=== PATIENT | female | born 1965 | race Caucasian/White ===

== ENCOUNTER 2025-04-02 20:05 | Emergency (ER) | payer OTHER, SELFPAY ==
--- OUTSIDE RECORDS SUMMARY | 2025-04-02 20:08 | XMS_ITS | Clinical Summary ---
Author Organization [facility] [facility] Address [address] [place] [id number] Care Team Providers Care Car Hiker Name Role Phone Alicja Alves Primary Care Provider Allergies Active Allergy Reactions Criticality Noted Date Comments Azithromycin Other - Describe In Comment Field 01/09/2011 Lower GI bleeding Medications No known medications Active Problems Problem Noted Date Diagnosed Date Colon polyp 02/01/2017 Overview (03/31/2022): Colonoscopy 01/2017 polyp repeat in 5 years Colonoscopy 03/2022 diverticuli, repeat in 7 years, propofol Elevated glucose 03/08/2013 Vitamin D deficiency 02/23/2012 Fracture of sacrum at S3 06/08/2011 Resolved Problems Problem Noted Date Diagnosed Date Resolved Date Unspecified hemorrhoids with out mention of complication 05/27/2011 Intestinal infection due to Clostridium difficile 05/04/2011 Immunizations Immunization Administration Dates Next Due COVID-19 vaccine (Moderna 100mcg/0.5mL) VINEET ARGUETA 10/31/2020,08/01/2020 Td (Age >=7 Years) 10/11/2003 Zoster (Shingrix-RZV, recombinant) 07/03/2024, Family History Medical History Relation Name Comments Other Brother 3 Vascular malfor mation that bled and killed at age 32 No Known Problems Child 1 No Known Problems Child 2 No Known Problems Child 3 Atrial fibrillation Father Diabetes Father Hyperlipidemia Father Hypertension Father Cancer-colon Maternal Aunt 70's Cancer-colon Maternal Grandfather 50's Good Health Mother Cancer-breast No Family History Cancer-ovarian No Family History Relation Name Status Comments Brother 1 Alive Brother 2 Alive Brother 3 Child 1 Alive Child 2 Alive Child 3 Alive Father Alive Maternal Aunt Maternal Grandfather Mother Alive Sister 1 Alive Sister 2 Alive Social History Tobacco Use Types Packs/Day Years Used Date Smoking Tobacco: Never Smokeless Tobacco: Never Tobacco Cessation:Counseling Given: Yes Alcohol Use Standard Drinks/Week Comments Yes 0 (1 standard drink = 0.6 oz pur e alcohol) wine-- few nights per week PHQ-2 Answer Date Recorded PHQ-2 Score 0 05/17/2019 Financial Resource Strain Answer Date R ecorded Difficulty of Paying Living Expenses Not on file 04/26/2021 Difficulty of Paying Living Expenses Not on file 04/26/2021 Comments No Sex and Gender Information Value Date Recorded Sex Assigned at Not on file Legal Sex Female 5:49 AM MODEL MAKER SCALE Gender Identity Not on file Sexual Orientation Not on file Occupation Industry Job Start Date Job End Date Not on file Not on file Not on file Not on file Obstetrics History Para Term AB IAB SAB Ectopic Multiple Livin g Live Births 3 3 Date Outcome GA Total Labor Labor/2nd/3rd Weight Sex Type Anes PTL Clotilde A1 A5 Name Clin Para Para Para Last Filed Vital Signs Vital Sign Reading Time Taken Comments Blood Pressure 116/75 04/30/2022 8:04 AM MODEL MAKER SCALE Pulse 60 04/30/2022 8:04 AM MODEL MAKER SCALE Temperature 36.7 C (98.1 F) 11/22/2020 9:41 AM CDT Respiratory Rate - - Oxygen Saturation 100% 04/30/2022 8:04 AM MODEL MAKER SCALE Inhaled Oxygen Concentration - - Weight 73 kg (161 lb) 12/24/2021 8:12 AM CDT Height 174 cm (5' 8.5) 12/24/2021 8:12 AM CDT Body Mass Index 24.12 12/24/2021 8:12 AM CDT Plan of Treatment Health Maintenance Due Date Last Done Comments HIV for age 15-65 1981 Hepatitis C screening for ag e 18-79 1984 Hepatitis B series for 19+ ( 1 of 3 - 19+ 3-dose series) 1985 Tetanus booster 10/10/2013 10/11/2003 Pneumococcal series for age 50+ (1 of 1 - PCV) 2016 Depression screening for age 12+ 05/17/2020 05/17/19 20, 02/08/2017 BMI (ht and wt on same day) for age 18+ 12/24/2022 12/24/2021, 11/22/2020, 05/17/2019, Additional history exists Pap test for age 21-65 05/17/2024 , 05/17/2019, 09/26/2014, Additional history exists COVID-19 vaccine series ( - 2024- season) 2024 10/31/2020, 08/01/2020 Influenza Vaccine (#1) 2024 Mammogram for age 45-75 03/21/2025 03/21/20 24, 02/09/2023, 06/13/2021, Additional history exists Lipids for age 45-75 05/30/2026 05/30/2021, 05/17/2019, 02/08/2017, Additional history exists Colonoscopy through age 75 03/31/202903/31, 03/31/2022, 03/31/2022, Additional history exists RSV vaccine for adults or (1 - 1-dose 75+ series) 2041 Zoster (shingles) series for age 50+ Completed 07/03/2024, 05/01/2024 Procedures Procedure Name Priority Date/Time Associated Diagnosis Comments XR MAMMO BEV BILAT SCREEN Routine 03/21/2024 1:11 PM MODEL MAKER SCALE Visit for screening mammogram COLONOSCOPY SCREENING Routine 03/31/2022 7:52 AM MODEL MAKER SCALE History of colon polyps LIPID PANEL W REFLEX MEASURED LDL Routine 05/30/2021 9:01 AM MODEL MAKER SCALE Screening cholesterol level ENAMEL FINISHER THIN PREP PAP SCREEN IMAGED Routine 05/17/2019 9:10 AM MODEL MAKER SCALE Screening for cervical cancer from Last 3 Months or Most Recently Relevant to Health Maintenance Results * XR MAMMO BEV BILAT SCREEN (03/21/2024 1:11 PM MODEL MAKER SCALE) Anatomical Region Laterality Modality BREASTS, Breast Left, Breast Right Bilateral Mammography Impressions 03/21/2024 2:35 PM MODEL MAKER SCALE There is no radiographic evidence for malignancy. Recommend annual mammograms. MAMMOGRAM ASSESSMENT: ACR 1 Negative PATIENTS: You will also receive a letter with your examination results in an easy to read format. If you have questions about your results, please contact your referring provider. Narrative 03/21/2024 2:35 PM MODEL MAKER SCALE For Patients: As a result of the Cures Act, medical imaging exams and procedure reports are released immediately into your electronic medical record. You may view this report before your referring provider. If you have questions, please contact your health care provider. XR MAMMO BEV BILAT SCREEN [[id number]] CLINICAL HISTORY: This is an asymptomatic 58 y.o. patient. INDICATION FOR EXAM: Mammogram Screening. TECHNIQUE: CC & MLO views were obtained. This study was evaluated with the assistance of Computer-Aided Detection. Breast Tomosynthesis was used in interpretation. COMPARISON FILM: Yes 02/09/23 [facility] 06/13/21 [facility] FINDINGS: The breasts are heterogeneously dense, which may obscure small masses. There are no dominant masses, suspicious micro calcifications or areas of architectural distortion. us Alicja CRAMER MAMMO Final R esult * COLONOSCOPY (03/31/2022 8:29 AM MODEL MAKER SCALE) 03/31/2022 8:29 AM MODEL MAKER SCALE Narrative Transcriptions Rinku Díaz MD - 03/31/2022 8:54 AM CST Patient Name: Emmanuelle Rueda Procedure Date: 03/31/2022 Gender: Female Date of : 1965 Admit Type: Outpatient Procedure: Colonoscopy Proceduralist: Rinku Díza MD , Cristina Obando, RN(Nurse), Ibeth Barros, RN (Nurse) Referring MD: Alicja Alves Indications/Pre-Op Diagnosis: High risk colon cancer surveillance:Personal history of sessile serrated colon polyp(less than 10 mm in size) with no dysplasia, Last colonoscopy: January 2017 Medications: Fentanyl 200 micrograms IV, Midazolam 3 mgIV, The level of sedation administered wasmoderate Procedure Description: The patient had risks, benefits and alternatives explained to andgave informed consent. The patient had a stable cardiopulmonary status and judged an adequate candidate for conscious sedation. The endoscope [id number] was passed through the anus andadvanced to the cecum, identified by appendiceal orifice and ileocecal valve.The colonoscopy was performed without difficulty. The patient toleratedthe procedure well. The quality of the bowel preparation was good. The ileocecal valve, appendiceal orifice, and rectum were photographed. Complications: No immediate complications. Estimated Blood Loss & Specimen: Estimated blood loss: none. Specimen collected - None Findings: The perianal and digital rectal examinations were normal. Scattered small-mouthed diverticula were found in the sigmoidcolon. The exam was otherwise without abnormality. Impressions/Post-Op Diagnosis: - Diverticulosis in the sigmoid colon. - The examination was otherwise normal. - No specimens collected. Recommendation: - Patient has a contact number available for emergencies. The signsand symptoms of potential delayed complications were discussed with the patient. Return to normal activities tomorrow. Written discharge instructions were provided to the patient. - Resume previous diet. - Continue present medications. - Repeat colonoscopy in 7 years for surveillance. - Patient's sedation for a repeat study will require Anesthesia staff assistance. Moderate Sedation: A time out was performed before the procedure. Moderate (conscious) sedation was administered by the endoscopy nurse and supervised bythe endoscopist. The following parameters were monitored: oxygensaturation, heart rate, blood pressure, EKG, CO2, respiratory rate, adequacy of pulmonary ventilation and reponse to care. Please refer to the patient's medical record flowsheets and nursing notes for moderate sedation details. Total physician intraservice time was 13 minutes. Rinku Díaz MD 03/31/2022 8:54:27 AM This report has been signed electronically. Note Initiated On: 03/31/2022 8:29 AM Procedure Code(s): --- Professional --- 49433, Colonoscopy, flexible; diagnostic, including collection of specimen(s) bybrushing or washing, when performed (separateprocedure) Diagnosis Code(s): --- Professional --- Z86.010, Personal history of colonicpolyps K57.30, Diverticulosis of large intestine without perforation or abscess withoutbleeding CPT copyright 2020 [employer]. All rights reserved. The codes documented in this report are preliminary and upon auditing coder reviewmay be revised to meet current compliance requirements. Scope In: 8:38:39 AM Scope Withdrawal Time 0 hours 6 minutes 9 seconds Scope Out: 8:49:09 AM us Rinku Díaz MD PROCEDURE ORD Final Res ult * LIPID PANEL W REFLEX MEASURED LDL (05/30/2021 9:01 AM MODEL MAKER SCALE) CHOLESTEROL,TOTAL 195 100 - 199 mg/dL 05/30/2021 10:13 PM MODEL MAKER SCALE [facility] TRIGLYCERIDES 52 <150 mg/dL 05/30/2021 10:13 PM MODEL MAKER SCALE [facility] HDL CHOLESTEROL 77 >40 mg/dL 10:13 PM MODEL MAKER SCALE [facility] NON-HDL CHOLESTEROL 118 <145 mg/dl 05/30/2021 10:13 PM MODEL MAKER SCALE [facility] CHOL/HDL RATIO 2.53 <4.50 05/30/2021 10:13 PM MODEL MAKER SCALE [facility] LDL CHOLESTEROL 108 <=130 mg/dL 05/30/2021 10:13 PM [facility] VLDL CHOLESTEROL 10 <=30 mg/dL 05/30/2021 10:13 PM MODEL MAKER SCALE [facility] PROVIDER ORDERED STATUS RANDOM 05/30/2021 10:13 PM [facility] Blood BLOOD SPECIMEN / Unknown Venipuncture / Unknown 05/30/2021 9:01 AM MODEL MAKER SCALE 05/30/2021 9:02 AM MODEL MAKER SCALE us Alicaj CRAMER CHEMISTRY Final R esult [facility] [address] [place] [address], [place] * ENAMEL FINISHER THIN PREP PAP SCREEN IMAGED (05/17/2019 9:10 AM MODEL MAKER SCALE) Case Report Gynecologic Cytology Report Case: [id number] Authorizing Provider: Alicja Alves PA Collected: 05/17/2019 0910 Ordering Location: [facility] Received: 05/17/2019 0950 Clinic First Screen: Kaylie Dey Specimen: ENAMEL FINISHER ThinPrep Vial Screening, Cervical 05/24/2019 11:54 AM MODEL MAKER SCALE [facility] INTERPRETATION/ RESULT NEGATIVE FOR INTRAEPITHELIAL LESION OR MALIGNANCY (NIL) (none) 05/24/2019 11:54 AM MODEL MAKER SCALE [facility] at 1154 MODEL MAKER SCALE SPECIMEN ADEQUACY Satisfactory for evaluation Endocervical component present 05/24/2019 11:54 AM MODEL MAKER SCALE [facility] HPV REQUEST HPV and PAP 05/24/2019 11:54 AM MODEL MAKER SCALE [facility] Date of LMP unknown 05/24/2019 11:54 AM MODEL MAKER SCALE [facility] Last Pap Date 09/26/14 05/24/2019 11:54 AM MODEL MAKER SCALE [facility] Last Pap Result NIL 0 11:54 AM MODEL MAKER SCALE [facility] Abnormal Pap or [place] Bx in last 5 years No 05/24/2019 11:54 AM MODEL MAKER SCALE [facility] Menstrual Status Postmenopausal 05/24/2019 11:54 AM MODEL MAKER SCALE [facility] [place] Bx Done Today No 05/24/2019 11:54 AM MODEL MAKER SCALE [facility] Additional Information None given 05/24/2019 11:54 AM MODEL MAKER SCALE [facility] Comment: Cytology is screened at [facility], Central Laboratory - [address], [place] [address] and [facility] - [address], [place] [address] and [facility] - [address] [place] [address] Interpreted at [facility] - [address], [place] [address] Automated Review Successful 05/24/2019 11:54 AM MODEL MAKER SCALE [facility] Comment:Specimen processed s uccessfully by automated stack yield engineer device, ThinPrep Imaging System, [employer] ANCILLARY TESTING ENAMEL FINISHER HPV Ordered, Please see separate report 05/24/2019 11:54 AM MODEL MAKER SCALE [facility] Note The pap test is a screening technique, not a diagnostic procedure. It is used primarily to screen for squamous cancers and precursor lesions. Published studies have shown that it is subject to both false negative and false positive results. The pap test should not be used as the sole means to diagnose or exclude pre-malignant and malignant lesions. 05/24/2019 11:54 AM MODEL MAKER SCALE [facility] Other (Cervical) Non-Blood / Unknown 05/17/2019 9:10 AM MODEL MAKER SCALE 05/17/2019 9:50 AM MODEL MAKER SCALE Alicja CRAMER PATHOLOGY/CYTOLOGY Lilian kwong Result [facility] [address] [place] [address], [place] from Last 3 Months or Most Recently Relevant to Health Maintenance Insurance [facility] [employer] Care Teams Car Hiker Relationship Specialty Start Date End Date Alicja Alves PA [address] [place] [address] PCP - General Family Practice 09/26/14
[2025-04-02 20:26] VITALS: BP 149/78; PULSE 67; RESP 18; TEMP 36.6; O2SAT 98; BMI 20.7
--- NOTE | 2025-04-02 20:33 | CRLHL7_ITS ---
For Patients: As a result of the [employer] Cures Act, medical imaging exams and procedure reports are released immediately into your electronic medical record. You may view this report before your referring provider. If you have questions, please contact your health care provider. INDICATION: Pain, swelling, redness right ankle TECHNIQUE: Ultrasound venous duplex right lower extremity. Real-time ross-scale (B mode 2D), color Doppler, and spectral Doppler imaging were performed with compression and augmentation. COMPARISON: None FINDINGS: Deep vein: The right common femoral, femoral, popliteal, and visualized calf veins are fully compressible, demonstrate normal color flow, and normal response to mechanical augmentation. The Duplex Doppler waveforms are normal in appearance. Superficial vein: The visualized greater saphenous and superficial veins of the leg and calf are unremarkable. Soft tissue: No masses or cysts are identified. No adenopathy is seen. IMPRESSION: 1. No sonographic evidence of acute deep venous thrombosis seen. Dictated by: Darren Raymond MD @ 04/02/2025 22:06:26 (Electronically Signed)
--- NOTE | 2025-04-02 21:16 | ED_ITS ---
HPI - General Adult General Chief complaint: Lower Extremity Swelling Stated complaint: possible blood clot in lower right leg Time Seen by Provider: 04/02/25 21:08 Source: patient Mode of arrival: ambulatory Limitations: no limitations History of Present Illness HPI narrative: 59-year-old female, generally healthy not on any medications, presents today with leg swelling. Patient states that she believes perhaps 8 months ago she injured her right lower extremity although she is not quite sure had actually happened were she imagine that she injured it. Since then, she has felt some swelling of the anterior chavez. However over this last week and the area has become more swollen, tender and hot. She states that it gets red if she is on her feet for long periods of time. Denies any systemic symptoms. Related Data Home Medications ?Medication ?Instructions ?Recorded ?Confirmed No Known Home Medications 04/02/2512/18 Allergies Allergy/AdvReac Type Severity Reaction Status Date / Time azithromycin (From Zithromax) AdvReac Abdominal Verified 04/02/25 20:30 Pain Review of Systems Status of ROS: Reports: 10 or more systems reviewed and unremarkable except as noted in History and below Exam Narrative: Exam Narrative: Well-nourished well-developed patient in no acute distress. Alert and oriented. Answers questions appropriately. Mood and affect are appropriate. Thoughts are goal oriented and rational. No tangential or magical thinking noted. Patient speaks in full sentences without needing to catch her breath. Patient does not appear ill or toxic. HEENT: Normocephalic atraumatic. Pupils are equally round reactive to light. Extraocular muscles are intact. Conjunctivae are moist without any icterus noted. Moist mucous membranes. Cardiovascular: Heart is regular rate and rhythm S1 and S2 are present without any murmurs. Lungs: Clear to auscultation bilaterally no wheezes rhonchi or rales are appreciated. Extremities: Bilateral lower extremities are without edema. Normal DP and PT pulses. The anterior right chavez is swollen and tender. It is not red or hot. No swelling of the calf. Skin: Well perfused without any obvious rashes. Const: Vital Signs, click to edit/add: Vital Signs - 24 hr 04/02/25 20:26 Temperature 97.8 F Pulse Rate [Pulse Oximeter] 67 Respiratory Rate 18 Blood Pressure [Ri ght Upper Arm] 149/78 H Pulse Oximetry 98 Oxygen Delivery Me thod Room Air Course Course ED Course: We did proceed with an ultrasound of lower extremity. This was unremarkable. Vital Signs Vital signs: Initial Vital Signs Temperature 97.8 F 04/02/25 20: Temperature Source Temporal Artery Scan 04/02/25 20: Pulse Rate 67 04/02/25 20:26 Pulse Rhythm Regular 04/02/25 20:26 Respiratory Rate 18 04/02/25 20: Blood Pressure 149/78 H 04/02/25 20: Blood Pressure Mean 101 04/02/25 20:26 Blood Pressure Position Sitting 04/02/25 20:26 Pulse Oximetry 98 04/02/25 20:26 Oxygen Delivery Method Room Air 04/02/25 20:26 Vital Signs Temperature 97.8 F 04/02/25 20: Pulse Rate 67 04/02/25 20:26 Respiratory Rate 18 04/02/25 20: Blood Pressure 149/78 H 04/02/25 20:26 Pulse Oximetry 98 04/02/25 20:26 Oxygen Delivery Method Room Air 04/02/25 20:26 Temperature 97.8 F 04/02/25 20:26 Pulse Rate 67 04/02/25 20:26 Respiratory Rate 18 04/02/25 20:26 Blood Pressure 149/78 H 04/02/25 20:26 Pulse Oximetry 98 04/02/25 20:26 Oxygen Delivery Method Room Air 04/02/25 20:26 Medical Decision Making MDM Narrative Medical decision making narrative: 59-year-old female with anterior chavez swelling of unclear etiology. We discu ssed icing, elevation. We discussed follow-up with primary care. Imaging Data Venous US: Attestation: I have reviewed the pertinent imaging results. Radiologist's impression: TECHNIQUE: Ultrasound venous duplex right lower extremity. Real-time ross-scale (B mode 2D), color Doppler, and spectral Doppler imaging were performed with compression and augmentation. COMPARISON: None FINDINGS: Deep vein: The right common femoral, femoral, popliteal, and visualized calf veins are fully compressible, demonstrate normal color flow, and normal response to mechanical augmentation. The Duplex Doppler waveforms are normal in appearance. Superficial vein: The visualized greater saphenous and superficial veins of the leg and calf are unremarkable. Soft tissue: No masses or cysts are identified. No adenopathy is seen. IMPRESSION: 1. No sonographic evidence of acute deep venous thrombosis seen. Discharge Plan Discharge Clinical Impression: Swelling Patient Disposition: Home, Self-Care Condition: Stable Additional Instructions: Ultrasound was negative for any blood clots. Try icing and elevating the area. Do not ice more than 20 minutes at a time or apply ice directly to the skin. Recommend follow-up with your primary care provider for further management. Prescriptions: No Action No Known Home Medications Follow Up/Referrals: Breezy Lawler MD [Primary Care Provider, Family Practice] Stand Alone Forms: [employer] Info Instructions
== END 2025-04-02 22:26 | disposition home or self-care (01) ==
LOC: ED 22:23
PROVIDERS: Emergency Provider Family Medicine; PCP Physician Assistant Medical
DX: R22.41 Localized swelling, mass and lump, right lower limb (principal)
CPT/HCPCS: 93971; 99283; 99284